=== PATIENT | male | born 1935 | race Caucasian/White ===

== ENCOUNTER 2017-05-14 20:56 | Emergency (ER) | payer MEDICARE, BC ==
[2017-05-14 21:21] VITALS: BP 145/76
[2017-05-14] MEDS ORDERED: HYDROmorphone 1 MG/ML Syringe IVPUSH ONE ×2 (21:35→22:46)
[2017-05-14] MEDS ORDERED: Ondansetron 4 MG/2 ML SDV IV ONE (21:35)
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
[2017-05-14 22:55] LABS: CHLORIDE,CL 99 mmol/L (101-111); SODIUM,NA 135 mmol/L (135-145)
--- NOTE | 2017-05-21 01:34 | EKG ---
05/14/2017 - IESHA TORRES - This 12-lead EKG shows a normal sinus rhythm with a ventricular rate of 61. There is a right bundle-branch block. No further comments are made. [facility] /[id number]
== END 2017-05-14 23:42 ==
LOC: DL.ED 20:56
DX: S22.42XA Multiple fractures of ribs, left side, initial encounter for closed fracture (principal); S32.019A Unspecified fracture of first lumbar vertebra, initial encounter for closed fracture; S22.069A Unspecified fracture of T7-T8 vertebra, initial encounter for closed fracture; S22.079A Unspecified fracture of T9-T10 vertebra, initial encounter for closed fracture; S22.089A Unspecified fracture of T11-T12 vertebra, initial encounter for closed fracture; W16.112A Fall into natural body of water striking water surface causing other injury, initial encounter; I12.9 Hypertensive chronic kidney disease with stage 1 through stage 4 chronic kidney disease, or unspecified chronic kidney disease; N18.3 Chronic kidney disease, stage 3 (moderate); E78.00 Pure hypercholesterolemia, unspecified; F03.90 Unspecified dementia, unspecified severity, without behavioral disturbance, psychotic disturbance, mood disturbance, and anxiety; E55.9 Vitamin D deficiency, unspecified; Z79.82 Long term (current) use of aspirin; Z79.899 Other long term (current) drug therapy
CPT/HCPCS: 36415; 71250; 72128; 72131; 80053; 82150; 83690; 84484; 85025; 93005; 93010; 96374; 96375; 96376; 99284; 99285; J1170; J2405

== ENCOUNTER 2018-03-05 11:34 | Emergency (ER) | payer MEDICARE, BC ==
[2018-03-05] MEDS ORDERED: Morphine 2 MG/ML Syringe IVPUSH ONE ×2 (12:27→14:00)
--- NOTE | 2018-03-05 12:35 | EDM.PDOC ---
ED HPI GENERAL MEDICAL PROBLEM - General Chief Complaint: Back Pain or Injury Stated Complaint: [id number] BACK PAIN Time Seen by Provider: 03/05/18 12:32 Source of Information: Reports: Patient History Limitations: Reports: No Limitations - History of Present Illness INITIAL COMMENTS - FREE TEXT/NARRATIVE: This 82 yo male patient reports to the ED with lower back pain that started 2 days ago. The patient reports that he has been to the chiropractor 2 times with no symptom relief. The patient has taken Tylenol with no relief. The patient reports his symptoms started after he was moving a chair. The patient reports that he did not fall and has not been having any additional problems. 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 Lower Back Pain Score (Numeric/FACES): 10 - Related Data Allergies Allergy/AdvReac Type Severity Reaction Status Date / Time No Known Allergies Allergy Verified 05/14/17 21:22 Home Meds: Home Meds Acetaminophen 1 tab PO Q4H PRN 05/14/17 [History] Aspirin 1 tab PO DAILY 05/14/17 [History] Bisacodyl [Laxative] 1 tab PO DAILY PRN 05/14/17 [History] Ca Carbonate/Vitamin D3/Vit K [Calcium + D Soft Chewable Tab] 1 tab PO BID 05/14 [History] Cetirizine [ZyrTEC] 1 tab PO BEDTIME 05/14/17 [History] Cholecalciferol (Vitamin D3) [Vitamin D3] 2 tab PO DAILY 05/14/17 [History] Docusate Sodium [Colace] 1 tab PO BEDTIME PRN 05/14/17 [History] Donepezil [Aricept] 1 tab PO BEDTIME 05/14/17 [History] Fluticasone Propionate [Flonase] 1 squirt INH DAILY 05/14/17 [History] Furosemide [Lasix] 1 tab PO DAILY 05/14/17 [History] Gatifloxacin [Zymaxid 0.5% Ophth Soln] 1 drop EYERT TID 05/14/17 [History] Hydrocodone/Acetaminophen [Hydrocodon-Acetaminoph 7.5-325] 1 tab PO BEDTIME [History] Ketorolac [Acular 0.5% Ophth Soln] 1 drop EYEBOTH TID 05/14/17 [History] Lactulose [Chronulac] 15 - 30 ml PO DAILY PRN 05/14/17 [History] Losartan [Cozaar] 1 tab PO DAILY 05/14/17 [History] Metoprolol Succinate [Toprol XL] 1 tab PO DAILY 05/14/17 [History] Metoprolol Tartrate 0.5 tab PO BID 05/14/17 [History] Multivitamin [Multi-Vitamin Daily] 1 tab PO DAILY 05/14/17 [History] [place]-3/DHA/Epa/Fish Oil [[place]-3 Fish Oil 1,000 MG Sfgl] 1 cap PO DAILY [History] Polyethylene Glycol 3350 [MiraLAX] 3 tbsp PO DAILY 05/14/17 [History] atorvaSTATin [Lipitor] 1 tab PO BEDTIME 05/14/17 [History] prednisoLONE Acetate [Pred Forte 1% Ophth Susp] 1 drop EYEBOTH TID 05/14/17 [ History] rOPINIRole HCl [Requip] 2 tab PO BEDTIME 05/14/17 [History] Past Medical History HEENT History: Reports: Cataract, Impaired Vision Cardiovascular History: Reports: Aneurysm, Bypass, High Cholesterol, Hypertension Gastrointestinal History: Reports: Chronic Constipation Genitourinary History: Reports: Other (See Below) Other Genitourinary History: Stage III kidney disease. Musculoskeletal History: Reports: Back Pain, Chronic Neurological History: Reports: Other (See Below) Other Neuro History: On aricept for early dementia Endocrine/Metabolic History: Reports: Vitamin D Deficiency - Past Surgical History GI Surgical History: Reports: Hernia, Inguinal Musculoskeletal Surgical History: Reports: Other (See Below) Other Musculoskeletal Surgeries/Procedures:: MARY behind knee surgery Social & Family History - Family History Family Medical History: Noncontributory - Tobacco Use Smoking Status *Q: Never Smoker Second Hand Smoke Exposure: Yes - Caffeine Use Caffeine Use: Reports: None - Recreational Drug Use Recreational Drug Use: No ED ROS GENERAL - Review of Systems Review Of Systems: ROS reveals no pertinent complaints other than HPI. ED EXAM,LOWER BACK PAIN/INJURY - Physical Exam Exam: See Below Exam Limited By: No Limitations General Appearance: Alert, WD/WN, Moderate Distress Eye Exam: Bilateral Eye: EOMI, Normal Inspection, PERRL Ears: Normal External Exam, Normal Canal, Hearing Grossly Normal, Normal TMs Nose: Normal Inspection, Normal Mucosa, No Blood Throat/Mouth: Normal Inspection, Normal Lips, Normal Teeth, Normal Gums, Normal Oropharynx, Normal Voice, No Airway Compromise Head: Atraumatic, Normocephalic Neck: Normal Inspection, Supple, Non-Tender, Full Range of Motion Respiratory/Chest: No Respiratory Distress, Lungs Clear, Normal Breath Sounds, No Accessory Muscle Use, Chest Non-Tender Cardiovascular: Normal Peripheral Pulses, Regular Rate, Rhythm, No Edema, No Gallop, No JVD, No Murmur, No Rub GI/Abdominal: Normal Bowel Sounds, Soft, Non-Tender, No Organomegaly, No Distention, No Abnormal Bruit, No Mass (Male) Exam: Deferred Rectal (Males) Exam: Deferred Back Exam: Paraspinal Tenderness (bilateral lower back) Extremities: Normal Inspection, Normal Range of Motion, Non-Tender, No Pedal Edema, Normal Capillary Refill Neurological: Alert, Normal Mood/Affect, CN II-XII Intact, Oriented x 3 Skin Exam: Warm, Dry, Intact, Normal Color, No Rash Lymphatic: No Adenopathy Course - Vital Signs Last Recorded V/S: Last Vital Signs Temp 36.9 C 03/05/18 15:00 Pulse 70 03/05/18 15:00 Resp 18 03/05/18 15:00 BP 163/73 H 03/05/18 15:00 Pulse Ox 100 03/05/18 15:00 - Orders/Labs/Meds Meds: Medications Discontinued Medications Generic Name Dose Route Start Last Admin Trade Name Ashish PRN Reason Stop Dose Admin Hydrocodone Bitart/Acetaminophen 1 tab 03/05/18 14:58 [place] 325-10 Mg PO 03/05/18 14:59 ONETIME ONE Methylprednisolone Sodium Succinate 125 mg 03/05/18 14:58 Solu-Medrol IVPUSH 03/05/18 14:59 ONETIME ONE Morphine Sulfate 2 mg 03/05/18 12:27 03/05/18 12:45 Morphine IVPUSH 03/05/18 12:28 2 mg ONETIME ONE Administration Morphine Sulfate 2 mg 03/05/18 14:00 03/05/18 14:05 Morphine IVPUSH 03/05/18 14:01 2 mg ONETIME ONE Administration Departure - Departure Time of Disposition: 15:15 Disposition: Home, Self-Care 01 Condition: Fair Clinical Impression: Low back strain Qualifiers: Encounter type: initial encounter Qualified Code(s): S39.012A - Strain of muscle, fascia and tendon of lower back, initial encounter - Discharge Information Instructions: Back Pain, Adult, [id number], Muscle Strain, [id number] Forms: ED Department Discharge Care Plan Goals: The patient and his were advised of the examination and x-ray results during the visit. The patient was given 2 IV doses of Mophine, an IV dose of SoluMedrol (steroid) and an oral dose of [place] (10/325) while in the ED. The patient was discharged with a script for: 1) Prednisone (20 mg) #10 to take 2 by mouth daily for 5 days, 2) Flexeril (10 mg) #20 to take 1 by mouth at bedtime as needed and 3) [place] (10/325) #20 to take 1 by mouth every 6 hours as needed. If the patient has any additional symptoms or further concerns, the patient should either return to the emergency department or follow-up with his primary care facility.
[2018-03-05] MEDS ORDERED: methylPREDNISolone Sodium Succinate 125 MG/2 ML SDV IVPUSH ONE (14:58)
[2018-03-05] MEDS ORDERED: Acetaminophen/HYDROcodone 325-10 MG Tab PO ONE (14:58)
[2018-03-05 15:02] VITALS: BP 163/73
== END 2018-03-05 15:17 | disposition home or self-care (01) ==
LOC: DL.ED 11:34
DX: S39.012A Strain of muscle, fascia and tendon of lower back, initial encounter (principal); I12.9 Hypertensive chronic kidney disease with stage 1 through stage 4 chronic kidney disease, or unspecified chronic kidney disease; E78.00 Pure hypercholesterolemia, unspecified; N18.3 Chronic kidney disease, stage 3 (moderate); Z79.82 Long term (current) use of aspirin; Z79.899 Other long term (current) drug therapy; X58.XXXA Exposure to other specified factors, initial encounter
CPT/HCPCS: 72100; 96374; 96375; 96376; 99283; A9270; J2270; J2930

== ENCOUNTER 2020-04-18 12:28 | Observation (INO) | payer MEDICARE, BC ==
--- NOTE | 2020-04-18 12:38 | EDM.PDOC ---
"ED HPI GENERAL MEDICAL PROBLEM - General Chief Complaint: General Stated Complaint: being brought in by car Time Seen by Provider: 04/18/20 12:38 Source of Information: Reports: Patient, Family (daughter), Old Records, RN, RN Notes Reviewed History Limitations: Reports: Other (Pt has dementia.) - History of Present Illness INITIAL COMMENTS - FREE TEXT/NARRATIVE: 84 y.o male presents to ER from home by POV with daughter (Simran) present due to pt with dementia with c/o with swelling and pain to the right lower extremity. The swelling began a on Sunday (04/16/30) but worsened today. Pt's daughter noted pitting edema to Rt foot, Rt lower extremity more swollen than left. Reports pain to the lower leg above the ankle and in to the krishna area. Reports being on chronic Lasix for CHF. 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 He also has Hx of Fem/Pop bypasses with aneurysms. Pt denies chest pain, cough, orthopnea, or shortness of breath. He denies any injury. Onset: Gradual Onset Date: 04/16/20 Duration: Constant, Getting Worse Location: Reports: Lower Extremity, Right Quality: Reports: Ache Severity: Moderate Improves with: Reports: None Worsens with: Reports: Other (Wt bearing/walking), Movement Associated Symptoms: Reports: No Other Symptoms Right Leg Pain Score (Numeric/FACES): 6 - Related Data Allergies Allergy/AdvReac Type Severity Reaction Status Date / Time No Known Allergies Allergy Verified 04/18/20 12:35 Home Meds: Home Meds Acetaminophen 500 mg PO Q4H PRN 05/14/17 [History] Aspirin 81 mg PO DAILY 05/14/17 [History] Calcium Carb/Vitamin D3/Vit K1 [Calcium + D Soft Chewable Tab] 1 tab PO BID [History] Cholecalciferol (Vitamin D3) [Vitamin D3] 2,000 unit PO DAILY 05/14/17 [History] Docusate Sodium [Colace] 100 mg PO BEDTIME PRN 05/14/17 [History] Donepezil [Aricept] 10 mg PO BEDTIME 05/14/17 [History] Fluticasone Propionate [Flonase] 1 inh INH DAILY 05/14/17 [History] Furosemide [Lasix] 40 mg PO DAILY 05/14/17 [History] Gatifloxacin [Zymaxid 0.5% Ophth Soln] 1 drop EYERT TID 05/14/17 [History] Ketorolac [Acular 0.5% Ophth Soln] 1 drop EYEBOTH TID 05/14/17 [History] Lactulose [Chronulac] 15 - 30 ml PO DAILY PRN 05/14/17 [History] Losartan [Cozaar] 25 mg PO DAILY 05/14/17 [History] Multivitamin [Multi-Vitamin Daily] 1 tab PO DAILY 05/14/17 [History] Champion-3/DHA/Epa/Fish Oil [Champion-3 Fish Oil 1,000 MG Sfgl] 1,000 mg PO DAILY [History] Polyethylene Glycol 3350 [MiraLAX] 3 tbsp PO DAILY 05/14/17 [History] bisacodyL [Laxative] 1 tab PO DAILY PRN 05/14/17 [History] prednisoLONE Acetate [Pred Forte 1% Ophth Susp] 1 drop EYEBOTH TID 05/14/17 [ History] rOPINIRole HCl [Requip] 0.5 mg PO BEDTIME 05/14/17 [History] Citalopram Hydrobromide [Celexa] 10 mg PO DAILY 04/18/20 [History] Melatonin 5 mg PO BEDTIME 04/18/20 [History] Melatonin 10 mg PO 04/18/20 [History] Memantine [Namenda] 5 mg PO BID 04/18/20 [History] Past Medical History HEENT History: Reports: Cataract, Impaired Vision Cardiovascular History: Reports: Aneurysm, Blood Clots/VTE/DVT, Bypass, High Cholesterol, Hypertension, Other (See Below) (Fem/Pop bypass with aneurysms in Rt lower extremity.) Gastrointestinal History: Reports: Chronic Constipation Genitourinary History: Reports: Other (See Below) Other Genitourinary History: Stage III kidney disease. Musculoskeletal History: Reports: Back Pain, Chronic Neurological History: Reports: Other (See Below) Other Neuro History: On aricept for early dementia Psychiatric History: Reports: Dementia Endocrine/Metabolic History: Reports: Vitamin D Deficiency - Past Surgical History Cardiovascular Surgical History: Reports: Vascular Surgery (Fem/pop bypass) GI Surgical History: Reports: Hernia, Inguinal Musculoskeletal Surgical History: Reports: Other (See Below) Other Musculoskeletal Surgeries/Procedures:: MARY behind knee surgery Social & Family History - Family History Family Medical History: Noncontributory - Caffeine Use Caffeine Use: Reports: None - Living Situation & Occupation Living situation: Reports: , with Spouse Occupation: Retired ED ROS GENERAL - Review of Systems Review Of Systems: Comprehensive ROS is negative, except as noted in HPI. ED EXAM, GENERAL - Physical Exam Exam: See Below Exam Limited By: No Limitations General Appearance: Alert, WD/WN, No Apparent Distress Nose: Normal Inspection, No Blood Throat/Mouth: Normal Inspection, Normal Lips, Normal Voice, No Airway Compromise Head: Atraumatic, Normocephalic Neck: Normal Inspection Respiratory/Chest: No Respiratory Distress, Lungs Clear, Normal Breath Sounds, No Accessory Muscle Use, Chest Non-Tender Cardiovascular: Regular Rate, Rhythm GI/Abdominal: Normal Bowel Sounds, Soft, Non-Tender Extremities: Normal Range of Motion, Normal Capillary Refill, Pedal Edema (Rt > Left.), Leg Pain (Rt lower leg, no evidence of injury.), Other (Pulsatile mass at Rt posterior distal thigh). No: Joint Swelling, Michelle's Sign Neurological: Alert, Oriented (to person and place only), No Motor/Sensory Deficits, Confused (mild), Memory Loss Recent Events Psychiatric: Normal Affect, Normal Mood Skin Exam: Warm, Dry, Intact, Normal Color, No Rash Course - Vital Signs Last Recorded V/S: Last Vital Signs Temp 97 F 04/18/20 12:32 Pulse 66 04/18/20 12:32 Resp 16 04/18/20 12:32 BP 139/59 L 04/18/20 12:32 Pulse Ox 100 04/18/20 12:32 - Orders/Labs/Meds Orders: Active Orders 24 hr Category Date Time Status CV Arterial Duplex Leg Uni [US] Routine Exams 04/18/20 14:00 Taken Labs: Laboratory Tests 04/18/20 04/18/20 04/18/20 Range/Units 12:59 12:59 12:59 WBC 7.5 (5.0-10.0) 10^3/uL RBC 3.22 L (4.6-6.2) 10^6/uL Hgb 10.3 L (14.0-18.0) g/dL Hct 31.6 L (40.0-54.0) % MCV 98.1 (80-100) fL MCH 32.0 (27.0-34.0) pg MCHC 32.6 L (33.0-35.0) g/dL Plt Count 102 L (150-450) 10^3/uL Neut % (Auto) 58.3 (42.2-75.2) % Lymph % (Auto) 31.3 (20.5-50.1) % [place] % (Auto) 6.4 (2-8) % Eos % (Auto) 3.6 H (1.0-3.0) % Baso % (Auto) 0.4 (0.0-1.0) % PT 12.2 H (9.0-12.0) SEC INR 1.3 H (0.9-1.2) APTT 28.5 (22.0-34.0) SEC D-Dimer, Quantitative 3220 H (0-400) ng/mL Sodium 140 (136-145) mmol/L Potassium 3.9 (3.5-5.1) mmol/L Chloride 102 (98-107) mmol/L Carbon Dioxide 31 (21-32) mmol/L Anion Gap 10.9 (7-13) mEq/L BUN 35 H (7-18) mg/dL Creatinine 2.43 H (0.70-1.30) mg/dL Est Cr Clr Drug Dosing 21.50 mL/min Estimated GFR (MDRD) 25 BUN/Creatinine Ratio 14.4 (No establ ref range) Glucose 145 H (74-99) mg/dL Calcium 8.2 L (8.5-10.1) mg/dL Total Bilirubin 0.4 (0.2-1.0) mg/dL AST 45 H (15-37) U/L ALT 22 (16-63) U/L Alkaline Phosphatase 102 (46-116) U/L B-Natriuretic Peptide 103 H (0-100) pg/ml Total Protein 6.9 (6.4-8.2) g/dL Albumin 3.0 L (3.4-5.0) g/dL Globulin 3.9 Albumin/Globulin Ratio 0.77 Meds: Medications Discontinued Medications Generic Name Dose Route Start Last Admin Trade Name Freq PRN Reason Stop Dose Admin Hydromorphone HCl 0.5 mg 04/18/20 14:57 04/18/20 15:03 Dilaudid IVPUSH 04/18/20 14:58 0.5 mg ONETIME ONE Administration - Radiology Interpretation Free Text/Narrative:: [facility] Call: [phone] assistance Online chat: [email or web address] Creation Name: IESHA TORRES Age: 84Years M Date: 04/18/2020 SSN: -- : [id number] Study: US VENOUS DOPPLER LWR EXT RT Requesting Physician: ALVARO VARGAS Images: [id number] Addl Studies: Provided Clinical History: Pain, swelling Rt lower leg, Hx of DVTs Contrast: Contrast Medium: Contrast Amount: Contrast Method: Page 1 of 2 PROCEDURE INFORMATION: Exam: US Duplex Right Lower Extremity Veins, Limited Exam date and time: 04/18/2020 1:24 PM Age: 84 years old Clinical indication: Swelling (edema) of limb; Lower extremity, right; Prior surgery; Surgery date: 6+ months; Surgery type: Possible fem pop bypass; Additional info: Pain, swelling RT lower leg, HX of dvts TECHNIQUE: Imaging protocol: Real-time Duplex ultrasound of the Right Lower Extremity with 2-D harris scale, color Doppler flow and spectral waveform analysis with image documentation. Limited exam was focused on the right lower extremity veins. COMPARISON: No relevant prior studies available. FINDINGS: Right deep veins: Unremarkable. The common femoral, femoral, proximal profunda femoral and popliteal veins are patent without thrombus. Normal Doppler waveforms. Normal compressibility and/or augmentation response. Right superficial veins: Unremarkable. Saphenofemoral junction is patent without thrombus. Soft tissues: Large large pulsatile mass is present in the region of the distal popliteal vein measuring 6.4 x 5.4 cm. Blood flow is noted within the mass. Tardus waveform of the right posterior tibial artery is noted. Question pseudoaneurysm or true aneurysm. IMPRESSION: 1. No evidence of deep vein thrombosis. 2. Pulsatile mass present in the region of the distal popliteal vein. This may be secondary to patient's prior surgery. Aneurysm or pseudoaneurysm cannot be excluded. Further evaluation recommended. IESHA TORRES | Final Radiology Report CONFIDENTIALITY STATEMENT This report is intended only for use by the referring physician, and only in accordance with law. If you received this in error, call [phone]. Page 2 of 2 Thank you for allowing us to participate in the care of your patient. Dictated and Authenticated by: Vimal Conteh DO 04/18/2020 2:33 PM Central Time ([place] & [place]) [facility] Final Radiology Report Call: [phone] assistance Online chat: [email or web address] Name: IESHA TORRES Age: 84Years M Date: 04/18/2020 SSN: -- : [id number] Study: US CV ARTERIAL DUPLEX LEG UNI Requesting Physician: ALVARO VARGAS Images: [id number] Addl Studies: Provided Clinical History: pain swelling hx popliteal aneuryms Contrast: Without Contrast Medium: Contrast Amount: Contrast Method: Page 1 of 2 PROCEDURE INFORMATION: Exam: US Duplex Right Lower Extremity Arteries Or Arterial Bypass Grafts Exam date and time: 04/18/2020 1:24 PM Age: 84 years old Clinical indication: Swelling (edema) of limb; Upper extremity, right; Prior surgery; Surgery date: 6+ months; Surgery type: Possible fem pop bypass; Additional info: Pain swelling HX popliteal aneuryms TECHNIQUE: Imaging protocol: Right Real-time duplex scan of the arteries or arterial bypass grafts of the right lower extremity with 2-D harris scale, color Doppler flow and spectral waveform analysis. Images documented and saved. COMPARISON: No relevant prior studies available. FINDINGS: Right deep veins: Unremarkable. The common femoral, femoral, proximal profunda femoral and popliteal veins are patent without thrombus. Normal Doppler waveforms. Normal compressibility and/or augmentation response. Right superficial veins: Unremarkable. Saphenofemoral junction is patent without thrombus. Soft tissues: Large large pulsatile mass is present in the region of the distal popliteal vein measuring 6.4 x 5.4 cm. Blood flow is noted within the mass. Tardus waveform of the right posterior tibial artery is noted. Question pseudoaneurysm or true aneurysm. IMPRESSION: 1. No evidence of deep vein thrombosis. 2. Pulsatile mass present in the region of the distal popliteal vein. This may be secondary to patient's prior surgery. Popliteal aneurysm or pseudoaneurysm cannot be excluded. Further evaluation recommended. IESHA TORRES | Final Radiology Report CONFIDENTIALITY STATEMENT This report is intended only for use by the referring physician, and only in accordance with law. If you received this in error, call [phone]. Page 2 of 2 Thank you for allowing us to participate in the care of your patient. Dictated and Authenticated by: Vimal Conteh DO 04/18/2020 2:35 PM Central Time ([place] & [place]) - Re-Assessments/Exams Free Text/Narrative Re-Assessment/Exam: 04/18/20 14:52 Pt and his family decline transfer to have evaluation by [facility]. surgery in [place] (where his previous fem-pop bypass was performed). Pt and family agree pt is DNR /DNI and wishes to have comfort care. Pt has previously declined dialysis, and family states he was told that he was a poor candidate for further vascular surgery to his legs. 04/18/20 15:15 Dr. Mata agrees to admit pt for comfort care. Departure - Departure Time of Disposition: 15:16 (admit to Dr. Mata) Disposition: Admitted As Inpatient 65 Condition: Poor Clinical Impression: Aneurysm of right lower extremity, Need for comfort care, Pain of right lower extremity, History of dementia - Discharge Information *PRESCRIPTION DRUG MONITORING PROGRAM REVIEWED*: Not Applicable *COPY OF PRESCRIPTION DRUG MONITORING REPORT IN PATIENT [place]: Not Applicable Forms: ED Department Discharge Sepsis Event Note - Evaluation Sepsis Screening Result: No Definite Risk - Focused Exam Vital Signs: Vital Signs Temp Pulse Resp BP Pulse Ox 04/18/20 12:32 97 F 66 16 139/59 L 100 Date Exam was Performed: 04/18/20 Time Exam was Performed: 15:13 - My Orders Last 24 Hours: My Active Orders 04/18/20 14:00 CV Arterial Duplex Leg Uni [US] Routine - Assessment/Plan Last 24 Hours: My Active Orders 04/18/20 14:00 CV Arterial Duplex Leg Uni [US] Routine"
[2020-04-18 13:24] LABS: PTT,PARTIAL THROMBOPLSTIN TIME 28.5 SEC (22.0-34.0)
[2020-04-18 13:26] LABS: ANION GAP 10.9 mEq/L (7-13)
--- NOTE | 2020-04-18 14:33 | US ---
PROCEDURE INFORMATION: Exam: US Duplex Right Lower Extremity Veins, Limited Exam date and time: 04/18/2020 1:24 PM Age: 84 years old Clinical indication: Swelling (edema) of limb; Lower extremity, right; Prior surgery; Surgery date: 6+ months; Surgery type: Possible fem pop bypass; Additional info: Pain, swelling RT lower leg, HX of dvts TECHNIQUE: Imaging protocol: Real-time Duplex ultrasound of the Right Lower Extremity with 2-D harris scale, color Doppler flow and spectral waveform analysis with image documentation. Limited exam was focused on the right lower extremity veins. COMPARISON: No relevant prior studies available. FINDINGS: Right deep veins: Unremarkable. The common femoral, femoral, proximal profunda femoral and popliteal veins are patent without thrombus. Normal Doppler waveforms. Normal compressibility and/or augmentation response. Right superficial veins: Unremarkable. Saphenofemoral junction is patent without thrombus. Soft tissues: Large large pulsatile mass is present in the region of the distal popliteal vein measuring 6.4 x 5.4 cm. Blood flow is noted within the mass. Tardus waveform of the right posterior tibial artery is noted. Question pseudoaneurysm or true aneurysm. IMPRESSION: 1. No evidence of deep vein thrombosis. 2. Pulsatile mass present in the region of the distal popliteal vein. This may be secondary to patient's prior surgery. Aneurysm or pseudoaneurysm cannot be excluded. Further evaluation recommended.
[2020-04-18] MEDS ORDERED: HYDROmorphone 0.5 MG/0.5 ML Syringe IVPUSH ONE (14:57)
[2020-04-18] MEDS ORDERED: Acetaminophen 325 MG Tab PO PRN (16:15)
[2020-04-18] MEDS ORDERED: Docusate Sodium 100 MG Cap PO PRN (16:15)
[2020-04-18] MEDS ORDERED: Ondansetron 4 MG Tab.DIS PO PRN (16:15)
[2020-04-18] MEDS ORDERED: Morphine 2 MG/ML SYRINGE IVPUSH PRN (16:15)
[2020-04-18] MEDS ORDERED: Sodium Chloride 0.9% 10 ML Syringe FLUSH PRN (16:15)
[2020-04-18] MEDS ORDERED: oxyCODONE 5 MG Tab PO PRN (16:15)
[2020-04-18] MEDS ORDERED: Melatonin 3 MG Tab PO PRN (16:19)
--- NOTE | 2020-04-18 16:28 | PCM.HP ---
H&P History of Present Illness - General Date of Service: 04/18/20 Admit Problem/Dx: Admission Diagnosis/Problem Admission Diagnosis/Problem Pain Source of Information: Patient, Family - History of Present Illness Initial Comments - Free Text/Narative: 84-year-old with a history of hypertension, chronic kidney disease stage 3-4, peripheral artery disease with prior popliteal femoral bypass. The patient presented with 2 days history of bilateraleg swelling. The swelling is more pronounced on the right side. The patient has been complaining of the right knee area pain. There was no swelling in the knee, no trauma, no redness. The patient lives at home. The . Has significant dementia and had problems with ambulation. He used to go to physical and occupational therapy before the Covid-19 restriction period. The patient says the pain has actually improved. He received Dilaudid in the emergency room. According to the patient's family to swelling is also better now. Right Leg Pain Score (Numeric/FACES): 6 - Related Data Allergies/Adverse Reactions: Allergies Allergy/AdvReac Type Severity Reaction Status Date / Time No Known Allergies Allergy Verified 04/18/20 15:44 Home Medications: Home Meds Acetaminophen 500 mg PO Q4H PRN 05/14/17 [History] Aspirin 81 mg PO DAILY 05/14/17 [History] Calcium Carb/Vitamin D3/Vit K1 [Calcium + D Soft Chewable Tab] 1 tab PO BID [History] Cholecalciferol (Vitamin D3) [Vitamin D3] 2,000 unit PO DAILY 05/14/17 [History] Docusate Sodium [Colace] 100 mg PO BEDTIME PRN 05/14/17 [History] Donepezil [Aricept] 10 mg PO BEDTIME 05/14/17 [History] Fluticasone Propionate [Flonase] 1 inh INH DAILY 05/14/17 [History] Furosemide [Lasix] 40 mg PO DAILY 05/14/17 [History] Gatifloxacin [Zymaxid 0.5% Ophth Soln] 1 drop EYERT TID 05/14/17 [History] Ketorolac [Acular 0.5% Ophth Soln] 1 drop EYEBOTH TID 05/14/17 [History] Lactulose [Chronulac] 15 - 30 ml PO DAILY PRN 05/14/17 [History] Losartan [Cozaar] 25 mg PO DAILY 05/14/17 [History] Multivitamin [Multi-Vitamin Daily] 1 tab PO DAILY 05/14/17 [History] [place]-3/DHA/Epa/Fish Oil [[place]-3 Fish Oil 1,000 MG Sfgl] 1,000 mg PO DAILY [History] Polyethylene Glycol 3350 [MiraLAX] 3 tbsp PO DAILY 05/14/17 [History] bisacodyL [Laxative] 1 tab PO DAILY PRN 05/14/17 [History] prednisoLONE Acetate [Pred Forte 1% Ophth Susp] 1 drop EYEBOTH TID 05/14/17 [ History] rOPINIRole HCl [Requip] 0.5 mg PO BEDTIME 05/14/17 [History] Citalopram Hydrobromide [Celexa] 10 mg PO DAILY 04/18/20 [History] Melatonin 5 mg PO BEDTIME 04/18/20 [History] Melatonin 10 mg PO 04/18/20 [History] Memantine [Namenda] 5 mg PO BID 04/18/20 [History] Past Medical History HEENT History: Reports: Cataract, Impaired Vision Cardiovascular History: Reports: Aneurysm, Blood Clots/VTE/DVT, Bypass, High Cholesterol, Hypertension, Other (See Below) (Fem/Pop bypass with aneurysms in Rt lower extremity.) Gastrointestinal History: Reports: Chronic Constipation Genitourinary History: Reports: Other (See Below) Other Genitourinary History: Stage III kidney disease. Musculoskeletal History: Reports: Back Pain, Chronic Neurological History: Reports: Other (See Below) Other Neuro History: On aricept for early dementia Psychiatric History: Reports: Dementia Endocrine/Metabolic History: Reports: Vitamin D Deficiency - Past Surgical History Cardiovascular Surgical History: Reports: Vascular Surgery (Fem/pop bypass) GI Surgical History: Reports: Hernia, Inguinal Musculoskeletal Surgical History: Reports: Other (See Below) Other Musculoskeletal Surgeries/Procedures:: MARY behind knee surgery Social & Family History - Family History Family Medical History: Noncontributory - Tobacco Use Smoking Status *Q: Never Smoker - Caffeine Use Caffeine Use: Reports: Coffee - Recreational Drug Use Recreational Drug Use: No - Living Situation & Occupation Living situation: Reports: , with Spouse Occupation: Retired H&P Review of Systems - Review of Systems: Review Of Systems: See Below General: Denies: Fever Pulmonary: Denies: Shortness of Breath Cardiovascular: Reports: Edema. Denies: Chest Pain Gastrointestinal: Denies: Abdominal Pain Genitourinary: Denies: Dysuria Psychiatric: Reports: Confusion. Denies: Agitation Exam - Exam Exam: See Below - Vital Signs Vital Signs: Last Vital Signs Temp 97 F 04/18/20 12:32 Pulse 66 04/18/20 12:32 Resp 16 04/18/20 12:32 BP 139/59 L 04/18/20 12:32 Pulse Ox 100 04/18/20 12:32 Weight: 160 lb 12.8 oz - Exam General: Alert. No: Oriented Neck: Supple Lungs: Clear to Auscultation, Normal Respiratory Effort, Decreased Breath Sounds Cardiovascular: Regular Rate, Regular Rhythm GI/Abdominal Exam: Normal Bowel Sounds, Soft, Non-Tender Extremities: Pedal Edema (1+ on the left side 2+ on the right) Skin: Warm, Other (Multiple surgical incisions on the leg.) Neuro Extensive - Mental Status: Alert. No: Oriented x3 Psychiatric: Alert. No: Anxious, Agitated - Patient Data Lab Results Last 24 hrs: Laboratory Results - last 24 hr 04/18/20 04/18/20 04/18/20 Range/Units 12:59 12:59 12:59 WBC 7.5 (5.0-10.0) 10^3/uL RBC 3.22 L (4.6-6.2) 10^6/uL Hgb 10.3 L (14.0-18.0) g/dL Hct 31.6 L (40.0-54.0) % MCV 98.1 (80-100) fL MCH 32.0 (27.0-34.0) pg MCHC 32.6 L (33.0-35.0) g/dL Plt Count 102 L (150-450) 10^3/uL Neut % (Auto) 58.3 (42.2-75.2) % Lymph % (Auto) 31.3 (20.5-50.1) % [place] % (Auto) 6.4 (2-8) % Eos % (Auto) 3.6 H (1.0-3.0) % Baso % (Auto) 0.4 (0.0-1.0) % PT 12.2 H (9.0-12.0) SEC INR 1.3 H (0.9-1.2) APTT 28.5 (22.0-34.0) SEC D-Dimer, Quantitative 3220 H (0-400) ng/mL Sodium 140 (136-145) mmol/L Potassium 3.9 (3.5-5.1) mmol/L Chloride 102 (98-107) mmol/L Carbon Dioxide 31 (21-32) mmol/L Anion Gap 10.9 (7-13) mEq/L BUN 35 H (7-18) mg/dL Creatinine 2.43 H (0.70-1.30) mg/dL Est Cr Clr Drug Dosing 21.50 mL/min Estimated GFR (MDRD) 25 BUN/Creatinine Ratio 14.4 (No establ ref range) Glucose 145 H (74-99) mg/dL Calcium 8.2 L (8.5-10.1) mg/dL Total Bilirubin 0.4 (0.2-1.0) mg/dL AST 45 H (15-37) U/L ALT 22 (16-63) U/L Alkaline Phosphatase 102 (46-116) U/L B-Natriuretic Peptide 103 H (0-100) pg/ml Total Protein 6.9 (6.4-8.2) g/dL Albumin 3.0 L (3.4-5.0) g/dL Globulin 3.9 Albumin/Globulin Ratio 0.77 Result Diagrams: 04/18/20 12:59 04/18/20 12:59 Deni Results Last 24 hrs: Pulsatile mass of 6.4 x 5.4 cm described in the popliteal area. - Problem List (1) Hypertension SNOMED Code(s): 30901537 ICD Code: I10 - ESSENTIAL (PRIMARY) HYPERTENSION Status: Acute Current Visit: Yes (2) Edema SNOMED Code(s): 124490660, 149741574 ICD Code: R60.9 - EDEMA, UNSPECIFIED Status: Acute Current Visit: Yes (3) Chronic kidney disease, stage IV (severe) SNOMED Code(s): 572846680 ICD Code: N18.4 - CHRONIC KIDNEY DISEASE, STAGE 4 (SEVERE) Status: Acute Current Visit: Yes (4) Aneurysm of right lower extremity SNOMED Code(s): 395932542, 779063565 ICD Code: I72.4 - ANEURYSM OF ARTERY OF LOWER EXTREMITY Status: Acute Current Visit: No (5) History of dementia SNOMED Code(s): 539787521 ICD Code: Z86.59 - PERSONAL HISTORY OF OTHER MENTAL AND BEHAVIORAL DISORDERS Status: Acute Current Visit: No Problem List Initiated/Reviewed/Updated: Yes Orders Last 24hrs: Active Orders 24 hr Category Date Time Status Admission Diagnosis [ADT] Routine ADT 04/18/20 15:20 Ordered Patient Status [ADT] Routine ADT 04/18/20 16:15 Ordered Antiembolic Devices [RC] PER UNIT ROUTINE Care 04/18/20 16:19 Ordered Oxygen Therapy [RC] PRN Care 04/18/20 16:15 Ordered Peripheral IV Care [RC] . DIRECTED Care 04/18/20 16:17 Ordered Up With Assistance [RC] ASDIRECTED Care 04/18/20 16:15 Ordered VTE/DVT Education [RC] PER UNIT ROUTINE Care 04/18/20 16:15 Ordered Vital Signs [RC] Q4H Care 04/18/20 16:15 Ordered OT Evaluation and Treatment [CONS] Routine Cons 04/18/20 16:19 Ordered PT Evaluation and Treatment [CONS] Routine Cons 04/18/20 16:19 Ordered Regular Diet [DIET] Diet 04/18/20 Dinner Ordered CV Arterial Duplex Leg Uni [US] Routine Exams 04/18/20 14:00 Taken BASIC METABOLIC PANEL,BMP [CHEM] AM Lab 04/19/20 05:11 Ordered Acetaminophen [Tylenol] Med 04/18/20 16:15 Ordered 650 mg PO Q4H PRN Aspirin Med 04/19/20 09:00 Ordered 81 mg PO DAILY Cholecalciferol (Vitamin D3) [Vitamin D3] Med 04/19/20 09:00 Ordered 2,000 unit PO DAILY Citalopram Hydrobromide [Celexa] Med 04/19/20 09:00 Ordered 10 mg PO DAILY Docusate Sodium [Colace] Med 04/18/20 16:15 Ordered 100 mg PO BID PRN Donepezil [Aricept] Med 04/18/20 21:00 Ordered 10 mg PO BEDTIME Furosemide [Lasix] Med 04/18/20 21:00 Ordered 40 mg PO BID Heparin Sodium Med 04/18/20 22:00 Ordered 5,000 units SUBCUT Q8HR Losartan [Cozaar] Med 04/19/20 09:00 Ordered 25 mg PO DAILY Melatonin Med 04/18/20 16:19 Ordered 3 mg PO BEDTIME PRN Memantine [Namenda] Med 04/18/20 21:00 Ordered 5 mg PO BID Morphine Med 04/18/20 16:15 Ordered 1 mg IVPUSH Q2H PRN Multivitamin [Multi-Vitamin Daily] Med 04/19/20 09:00 Ordered 1 tab PO DAILY Ondansetron [Zofran ODT] Med 04/18/20 16:15 Ordered 4 mg PO Q6H PRN Sodium Chloride 0.9% [Saline Flush] Med 04/18/20 16:15 Ordered 10 ml FLUSH ASDIRECTED PRN oxyCODONE Med 04/18/20 16:15 Ordered 5 mg PO Q4H PRN polyethylene glycoL 3350 [MiraLAX] Med 04/19/20 09:00 Ordered 17 gm PO DAILY rOPINIRole [Requip] Med 04/18/20 21:00 Ordered 0.5 mg PO BEDTIME Peripheral IV Insertion Adult [OM.PC] Routine Oth 04/18/20 16:15 Ordered Saline Lock Insert [OM.PC] Routine Oth 04/18/20 16:15 Ordered CHELSEY Hose [Antiembolic Hose] [OM.PC] Routine Oth 04/18/20 16:19 Ordered Resuscitation Status Routine Resus Stat 04/18/20 16:15 Ordered Medication Orders Acetaminophen (Tylenol) 650 mg PO Q4H PRN PRN Reason: Pain (Mild 1-3)/fever Aspirin (Aspirin) 81 mg PO DAILY [facility] Cholecalciferol (Vitamin D3) mcg PO DAILY [facility] Docusate Sodium (Colace) 100 mg PO BID PRN PRN Reason: Constipation Furosemide (Lasix) 40 mg PO BID [facility] Heparin Sodium (Porcine) (Heparin Sodium) 5,000 units SUBCUT Q8HR [facility] Losartan Potassium (Cozaar) 25 mg PO DAILY [facility] Melatonin (Melatonin) 3 mg PO BEDTIME PRN PRN Reason: Sleep Morphine Sulfate (Morphine) 1 mg IVPUSH Q2H PRN PRN Reason: Pain (severe 7-10) Non-Formulary Medication (Citalopram Hydrobromide [Celexa]) 10 mg PO DAILY [facility] Non-Formulary Medication (Donepezil [Aricept]) 10 mg PO BEDTIME [facility] Non-Formulary Medication (Memantine [Namenda]) 5 mg PO BID [facility] Non-Formulary Medication (Multivitamin [Multi-Vitamin Daily]) 1 tab PO DAILY [facility] Ondansetron HCl (Zofran Odt) 4 mg PO Q6H PRN PRN Reason: nausea, able to take PO Oxycodone HCl (Oxycodone) 5 mg PO Q4H PRN PRN Reason: Pain (moderate 4-6) Polyethylene Glycol (Miralax) 17 gm PO DAILY [facility] Ropinirole HCl (Requip) 0.5 mg PO BEDTIME [facility] Sodium Chloride (Saline Flush) 10 ml FLUSH ASDIRECTED PRN PRN Reason: Keep Vein Open Assessment/Plan Comment:: 84-year-old with a history of dementia presented with the bilateral lower extremity swelling, right sided pain. The patient has a history of peripheral artery disease with known aneurysm with history of prior femoral-popliteal bypass. Further evaluation and treatment plans were discussed with the patient and family. We discussed the options of aggressive care versus more comfort oriented , medical management. Family including opted for medical management without surgical intervention. Lower extremity pain Might relate to arthritis, possibly due to pulsatile mass in the popliteal area Patient has not been a surgical candidate on prior evaluations Manage pain with Tylenol for mild pain, oxycodone for moderate pain, morphine IV for severe pain Lower extremity edema Increase diuretics Follow electrolytes and replace them as needed Use compression stocking Chronic kidney disease stage IV Will follow with increased diuretics Hypertension Treat with losartan Dementia Continue Namenda, Aricept Will have physical and occupational therapy evaluation and treatment CODE STATUS was discussed with the patient and family Per her known wishes that the patient will be DNR, DNI
[2020-04-18] MEDS: Furosemide 40 MG Tab PO SCH (19:30)
[2020-04-18] MEDS: Memantine 10 MG Tab PO SCH (20:03)
[2020-04-18] MEDS ORDERED: rOPINIRole 0.25 MG Tab PO SCH (21:00)
[2020-04-18] MEDS ORDERED: Donepezil 10 MG Tab PO SCH (21:00)
[2020-04-18] MEDS: Heparin Sodium 5,000 Units/ML Vial SUBCUT SCH (22:02)
[2020-04-19] MEDS: Heparin Sodium 5,000 Units/ML Vial SUBCUT SCH ×2 (05:47→13:06)
[2020-04-19 06:24] LABS: ANION GAP 10.4 mEq/L (7-13)
[2020-04-19] MEDS: Memantine 10 MG Tab PO SCH (08:53)
[2020-04-19] MEDS: Furosemide 40 MG Tab PO SCH (08:55)
[2020-04-19 08:58] VITALS: BP 132/60
[2020-04-19] MEDS ORDERED: Aspirin 81 MG Tab.EC PO SCH (09:00)
[2020-04-19] MEDS ORDERED: Losartan 25 MG Tab PO SCH (09:00)
[2020-04-19] MEDS ORDERED: Citalopram 20 MG Tab PO SCH (09:00)
[2020-04-19] MEDS ORDERED: Cholecalciferol (Vitamin D3) 25 MCG Tab PO SCH (09:00)
[2020-04-19] MEDS ORDERED: Multivitamins,Therapeutic Tab PO SCH (09:00)
[2020-04-19] MEDS ORDERED: Polyethylene Glycol 3350 Powder 17 GM Packet PO SCH (09:00)
[2020-04-19 09:53] VITALS: PULSE 65
--- NOTE | 2020-04-19 11:40 | PCM.DCSUM1 ---
Discharge Summary - Hospital Course Free Text/Narrative:: 84-year-old with a history of dementia presented with the bilateral lower extremity swelling, right sided pain. The patient has a history of peripheral artery disease with known aneurysm with history of prior femoral-popliteal bypass. Further evaluation and treatment plans were discussed with the patient and family. We discussed the options of aggressive care versus more comfort oriented , medical management. Family including opted for medical management without surgical intervention. Lower extremity pain Might relate to arthritis, possibly due to pulsatile mass in the popliteal area Patient has not been a surgical candidate on prior evaluations The pain has significantly improved. The patient was able to get up and walk with physical therapy. Manage pain with Tylenol for mild pain, oxycodone for moderate pain Lower extremity edema Continue diuretics Use compression stocking Chronic kidney disease stage IV Appears stable Hypertension Treat with losartan Dementia Continue Namenda, Aricept I believe the patient is homebound due to significant dementia, weakness and lower extremity pain preventing Him from leaving the house. He would benefit from group home for medication regimen teaching and evaluation of pain control. he would benefit from home physical therapy for home exercise program, strengthening and compression stocking Scheduled evaluation He would benefit from occupational therapy from home safety evaluation due to frequent falling and home treatment evaluation He would benefit from home health aide for personal care and bathing Diagnosis: Stroke: No - Discharge Data Discharge Date: 04/19/20 Discharge Disposition: Home, W Home Health Agency 06 Condition: Good - Referral to Home Health Date of Face to Face Encounter: 04/19/20 Reason for Homebound Status: weakness, dementia, r. leg pain Primary Care Physician: PCP None Skilled Need: skilled nurse for medication and pain management. PT for strength and activity training. ot for ADL training - Discharge Diagnosis/Problem(s) (1) Hypertension SNOMED Code(s): 52116505 ICD Code: I10 - ESSENTIAL (PRIMARY) HYPERTENSION Status: Acute Current Visit: Yes (2) Edema SNOMED Code(s): 398808553, 699508986 ICD Code: R60.9 - EDEMA, UNSPECIFIED Status: Acute Current Visit: Yes (3) Chronic kidney disease, stage IV (severe) SNOMED Code(s): 532530081 ICD Code: N18.4 - CHRONIC KIDNEY DISEASE, STAGE 4 (SEVERE) Status: Acute Current Visit: Yes (4) Aneurysm of right lower extremity SNOMED Code(s): 974446069, 687814823 ICD Code: I72.4 - ANEURYSM OF ARTERY OF LOWER EXTREMITY Status: Acute Current Visit: No (5) History of dementia SNOMED Code(s): 637912886 ICD Code: Z86.59 - PERSONAL HISTORY OF OTHER MENTAL AND BEHAVIORAL DISORDERS Status: Acute Current Visit: No - Patient Summary/Data Consults: Consultations 04/18/20 16:19 OT Evaluation and Treatment [CONS] Routine PT Evaluation and Treatment [CONS] Routine - Discharge Plan *PRESCRIPTION DRUG MONITORING PROGRAM REVIEWED*: Not Applicable *COPY OF PRESCRIPTION DRUG MONITORING REPORT IN PATIENT [place]: Not Applicable Prescriptions/Med Rec: oxyCODONE 5 mg PO Q4H PRN #7 tablet PRN Reason: Pain (Moderate 4-6) Home Medications: Home Meds Acetaminophen 500 mg PO Q4H PRN 05/14/17 [History] Calcium Carb/Vitamin D3/Vit K1 [Calcium + D Soft Chewable Tab] 1 tab PO BID [History] Cholecalciferol (Vitamin D3) [Vitamin D3] 2,000 unit PO DAILY 05/14/17 [History] Docusate Sodium [Colace] 100 mg PO BEDTIME PRN 05/14/17 [History] Donepezil [Aricept] 10 mg PO BEDTIME 05/14/17 [History] Fluticasone Propionate [Flonase] 1 inh INH DAILY 05/14/17 [History] Furosemide [Lasix] 40 mg PO DAILY 05/14/17 [History] Lactulose [Chronulac] 15 - 30 ml PO DAILY PRN 05/14/17 [History] Losartan [Cozaar] 25 mg PO DAILY 05/14/17 [History] Multivitamin [Multi-Vitamin Daily] 1 tab PO DAILY 05/14/17 [History] [place]-3/DHA/Epa/Fish Oil [[place]-3 Fish Oil 1,000 MG Sfgl] 1,000 mg PO DAILY [History] Polyethylene Glycol 3350 [MiraLAX] 3 tbsp PO DAILY 05/14/17 [History] bisacodyL [Laxative] 1 tab PO DAILY PRN 05/14/17 [History] rOPINIRole HCl [Requip] 0.5 mg PO BEDTIME 05/14/17 [History] Citalopram Hydrobromide [Celexa] 10 mg PO DAILY 04/18/20 [History] Melatonin 5 mg PO BEDTIME 04/18/20 [History] Memantine [Namenda] 5 mg PO BID 04/18/20 [History] Aspirin [Halfprin] 81 mg PO DAILY tab.ec 04/19/20 [Rx] oxyCODONE 5 mg PO Q4H PRN #7 tablet 04/19/20 [Rx] Oxygen Therapy Mode: Room Air Forms: ED Department Discharge - Discharge Summary/Plan Comment DC Time >30 min.: Yes (Discussion with physical, occupational therapy, referral for home care) - General Info Date of Service: 04/19/20 Subjective Update: No significant complaints of pain. Has been up and walking with physical therapy. Appears comfortable Functional Status: Reports: Pain Controlled, Tolerating Diet - Review of Systems Pulmonary: Denies: Shortness of Breath Cardiovascular: Reports: Edema (Much improved). Denies: Chest Pain Psychiatric: Reports: Confusion. Denies: Anxiety, Agitation, Hallucinations - Patient Data Vitals - Most Recent: Last Vital Signs Temp 98.2 F 04/19/20 08:00 Pulse 65 04/19/20 08:00 Resp 18 04/19/20 08:00 BP 132/60 04/19/20 08:52 Pulse Ox 96 04/19/20 08:00 Weight - Most Recent: 160 lb 12.8 oz I&O - Last 24 hours: Intake & Output 04/18/20 04/19/20 04/19/20 22:59 06:59 14:59 Intake Total 500 Balance 500 Lab Results - Last 24 hrs: Laboratory Results - last 24 hr 04/18/20 04/18/20 04/18/20 Range/Units 12:59 12:59 12:59 WBC 7.5 (5.0-10.0) 10^3/uL RBC 3.22 L (4.6-6.2) 10^6/uL Hgb 10.3 L (14.0-18.0) g/dL Hct 31.6 L (40.0-54.0) % MCV 98.1 (80-100) fL MCH 32.0 (27.0-34.0) pg MCHC 32.6 L (33.0-35.0) g/dL Plt Count 102 L (150-450) 10^3/uL Neut % (Auto) 58.3 (42.2-75.2) % Lymph % (Auto) 31.3 (20.5-50.1) % [place] % (Auto) 6.4 (2-8) % Eos % (Auto) 3.6 H (1.0-3.0) % Baso % (Auto) 0.4 (0.0-1.0) % PT 12.2 H (9.0-12.0) SEC INR 1.3 H (0.9-1.2) APTT 28.5 (22.0-34.0) SEC D-Dimer, Quantitative 3220 H (0-400) ng/mL Sodium 140 (136-145) mmol/L Potassium 3.9 (3.5-5.1) mmol/L Chloride 102 (98-107) mmol/L Carbon Dioxide 31 (21-32) mmol/L Anion Gap 10.9 (7-13) mEq/L BUN 35 H (7-18) mg/dL Creatinine 2.43 H (0.70-1.30) mg/dL Est Cr Clr Drug Dosing 21.50 mL/min Estimated GFR (MDRD) 25 BUN/Creatinine Ratio 14.4 (No establ ref range) Glucose 145 H (74-99) mg/dL Calcium 8.2 L (8.5-10.1) mg/dL Total Bilirubin 0.4 (0.2-1.0) mg/dL AST 45 H (15-37) U/L ALT 22 (16-63) U/L Alkaline Phosphatase 102 (46-116) U/L B-Natriuretic Peptide 103 H (0-100) pg/ml Total Protein 6.9 (6.4-8.2) g/dL Albumin 3.0 L (3.4-5.0) g/dL Globulin 3.9 Albumin/Globulin Ratio 0.77 06//20 Range/Units 05:30 WBC (5.0-10.0) 10^3/uL RBC (4.6-6.2) 10^6/uL Hgb (14.0-18.0) g/dL Hct (40.0-54.0) % MCV (80-100) fL MCH (27.0-34.0) pg MCHC (33.0-35.0) g/dL Plt Count (150-450) 10^3/uL Neut % (Auto) (42.2-75.2) % Lymph % (Auto) (20.5-50.1) % [place] % (Auto) (2-8) % Eos % (Auto) (1.0-3.0) % Baso % (Auto) (0.0-1.0) % PT (9.0-12.0) SEC INR (0.9-1.2) APTT (22.0-34.0) SEC D-Dimer, Quantitative (0-400) ng/mL Sodium 140 (136-145) mmol/L Potassium 4.4 (3.5-5.1) mmol/L Chloride 102 (98-107) mmol/L Carbon Dioxide 32 (21-32) mmol/L Anion Gap 10.4 (7-13) mEq/L BUN 35 H (7-18) mg/dL Creatinine 2.31 H (0.70-1.30) mg/dL Est Cr Clr Drug Dosing 22.62 mL/min Estimated GFR (MDRD) 27 BUN/Creatinine Ratio (No establ ref range) Glucose 96 (74-99) mg/dL Calcium 8.2 L (8.5-10.1) mg/dL Total Bilirubin (0.2-1.0) mg/dL AST (15-37) U/L ALT (16-63) U/L Alkaline Phosphatase (46-116) U/L B-Natriuretic Peptide (0-100) pg/ml Total Protein (6.4-8.2) g/dL Albumin (3.4-5.0) g/dL Globulin Albumin/Globulin Ratio Med Orders - Current: Current Medications Acetaminophen (Tylenol) 650 mg PO Q4H PRN PRN Reason: Pain (Mild 1-3)/fever Last Admin: 04/19/20 09:05 Dose: 650 mg Aspirin (Halfprin) 81 mg PO DAILY [facility] Last Admin: 04/19/20 08:55 Dose: 81 mg Cholecalciferol (Vitamin D3) 50 mcg PO DAILY [facility] Last Admin: 04/19/20 08:54 Dose: 50 mcg Citalopram Hydrobromide (Celexa) 10 mg PO DAILY [facility] Last Admin: 04/19/20 08:55 Dose: 10 mg Docusate Sodium (Colace) 100 mg PO BID PRN PRN Reason: Constipation Donepezil HCl (Aricept) 10 mg PO BEDTIME [facility] Last Admin: 04/18/20 20:03 Dose: 10 mg Furosemide (Lasix) 40 mg PO BIDDIURETIC [facility] Last Admin: 04/19/20 08:55 Dose: 40 mg Heparin Sodium (Porcine) (Heparin Sodium) 5,000 units SUBCUT Q8HR [facility] Last Admin: 04/19/20 05:47 Dose: Not Given Losartan Potassium (Cozaar) 25 mg PO DAILY [facility] Last Admin: 04/19/20 08:52 Dose: 25 mg Melatonin (Melatonin) 3 mg PO BEDTIME PRN PRN Reason: Sleep Last Admin: 04/18/20 20:03 Dose: 3 mg Memantine (Namenda) 5 mg PO BID [facility] Last Admin: 04/19/20 08:53 Dose: 5 mg Morphine Sulfate (Morphine) 1 mg IVPUSH Q2H PRN PRN Reason: Pain (severe 7-10) Multivitamins (Thera) 1 each PO DAILY [facility] Last Admin: 04/19/20 08:55 Dose: 1 each Ondansetron HCl (Zofran Odt) 4 mg PO Q6H PRN PRN Reason: nausea, able to take PO Oxycodone HCl (Oxycodone) 5 mg PO Q4H PRN PRN Reason: Pain (moderate 4-6) Polyethylene Glycol (Miralax) 17 gm PO DAILY [facility] Last Admin: 04/19/20 08:51 Dose: 17 gm Ropinirole HCl (Requip) 0.5 mg PO BEDTIME [facility] Last Admin: 04/18/20 20:03 Dose: 0.5 mg Sodium Chloride (Saline Flush) 10 ml FLUSH ASDIRECTED PRN PRN Reason: Keep Vein Open Discontinued Medications Hydromorphone HCl (Dilaudid) 0.5 mg IVPUSH ONETIME ONE Stop: 04/18/20 14:58 Last Admin: 04/18/20 15:03 Dose: 0.5 mg - Exam General: Reports: Alert. Denies: Oriented Neck: Reports: Supple Lungs: Reports: Clear to Auscultation, Normal Respiratory Effort Cardiovascular: Reports: Regular Rate, Regular Rhythm GI/Abdominal Exam: Normal Bowel Sounds, Soft, Non-Tender Extremities: Pedal Edema (Trace bilateral) Skin: Reports: Warm, Dry Psy/Mental Status: Reports: Alert, Normal Affect, Normal Mood
--- NOTE | 2020-04-19 15:39 | US ---
PROCEDURE INFORMATION: Exam: US Duplex Right Lower Extremity Arteries Or Arterial Bypass Grafts Exam date and time: 04/18/2020 1:24 PM Age: 84 years old Clinical indication: Swelling (edema) of limb; Upper extremity, right; Prior surgery; Surgery date: 6+ months; Surgery type: Possible fem pop bypass; Additional info: Pain swelling HX popliteal aneuryms TECHNIQUE: Imaging protocol: Right Real-time duplex scan of the arteries or arterial bypass grafts of the right lower extremity with 2-D harris scale, color Doppler flow and spectral waveform analysis. Images documented and saved. COMPARISON: No relevant prior studies available. FINDINGS: Right deep veins: Unremarkable. The common femoral, femoral, proximal profunda femoral and popliteal veins are patent without thrombus. Normal Doppler waveforms. Normal compressibility and/or augmentation response. Right superficial veins: Unremarkable. Saphenofemoral junction is patent without thrombus. Soft tissues: Large large pulsatile mass is present in the region of the distal popliteal vein measuring 6.4 x 5.4 cm. Blood flow is noted within the mass. Tardus waveform of the right posterior tibial artery is noted. Question pseudoaneurysm or true aneurysm. IMPRESSION: 1. No evidence of deep vein thrombosis. 2. Pulsatile mass present in the region of the distal popliteal vein. This may be secondary to patient's prior surgery. Popliteal aneurysm or pseudoaneurysm cannot be excluded. Further evaluation recommended.
== END 2020-04-19 13:40 | disposition home health service (06) ==
LOC: DL.ED 12:28 → DL.MS 15:20 → UNDOADMIN 15:20 → DL.ED 15:24 → INTOOBSV 16:15 → DL.MS 16:15
PROVIDERS: ADMIT Internal Medicine; ATTEND Internal Medicine
DX: R60.0 Localized edema (principal); M79.661 Pain in right lower leg; I72.4 Aneurysm of artery of lower extremity; E78.00 Pure hypercholesterolemia, unspecified; I12.9 Hypertensive chronic kidney disease with stage 1 through stage 4 chronic kidney disease, or unspecified chronic kidney disease; N18.4 Chronic kidney disease, stage 4 (severe); F03.90 Unspecified dementia, unspecified severity, without behavioral disturbance, psychotic disturbance, mood disturbance, and anxiety; Z79.82 Long term (current) use of aspirin; Z79.899 Other long term (current) drug therapy; Z86.79 Personal history of other diseases of the circulatory system; Z95.828 Presence of other vascular implants and grafts
CPT/HCPCS: 36415; 80048; 80053; 83880; 85025; 85379; 85610; 85730; 93926; 93971; 96374; 97161; 97165; 99284; A9270; G0378; J1170; 99217; 99218; 99283